=== PATIENT | female | born 1945 | race Caucasian/White ===

== ENCOUNTER 2020-05-17 12:43 | Emergency (ER) | payer OTHER ==
[~2020-05-17] VITALS: Ht 165.1 cm; Wt 81.7 kg
[2020-05-17] MEDS ORDERED: IBUPROFEN 600600 M1 PO (14:19)
[2020-05-17] MEDS ORDERED: APAP W/CODEINE1 TA2 PO (14:25)
[2020-05-17 15:08] VITALS: BP 173/60
== END 2020-05-17 15:09 | disposition home or self-care (01) ==
LOC: M.ERS 12:43
DX: M25.561 Pain in right knee (principal); M25.571 Pain in right ankle and joints of right foot; M79.89 Other specified soft tissue disorders; W22.8XXA Striking against or struck by other objects, initial encounter; Y93.89 Activity, other specified; Y92.89 Other specified places as the place of occurrence of the external cause; Y99.8 Other external cause status